=== PATIENT | male | born 1995 | race Caucasian/White ===

== ENCOUNTER 2017-10-30 15:12 | Emergency (ER) | payer BC ==
[2017-10-30 18:07] VITALS: BP 118/67
[2017-10-30] MEDS ORDERED: Lidocaine 1% MPF* 2 ML VIAL INJ ONE (18:07)
--- NOTE | 2017-10-30 18:07 | UC ---
UC General HPI - HPI Summary HPI Summary: pt c/o pain over tailbone area. thinks a cyst. past week, much more sore. - History of Current Complaint Chief Complaint: Ignacio Stated Complaint: CYST TAILBONE Time Seen by Provider: 10/30/17 18:01 Hx Obtained From: Patient Onset/Duration: Gradual Onset Timing: Constant Pain Intensity: 5 Aggravating: pressure to site Alleviating: nothing Associated Signs & Symptoms: Negative: Abdominal Pain, Fever, Nausea - Allergy/Home Medications Allergies/Adverse Reactions: Allergies Allergy/AdvReac Type Severity Reaction Status Date / Time No Known Allergies Allergy Verified 10/30/17 15:56 PMH/Surg Hx/FS Hx/Imm Hx Previously Healthy: Yes - Surgical History Surgical History: None - Family History Known Family History: Positive: Cardiac Disease - Social History Occupation: Student Lives: Dormitory/Roommates Alcohol Use: Daily Substance Use Type: None Smoking Status (MU): Never Smoked Tobacco Type: Cigars - Immunization History Vaccination Up to Date: Yes Review of Systems Constitutional: Negative Skin: Other - tender area over tailbone Eyes: Negative ENT: Negative Respiratory: Negative Cardiovascular: Negative Gastrointestinal: Negative Genitourinary: Negative Motor: Negative Neurovascular: Negative Musculoskeletal: Negative Neurological: Negative Psychological: Negative Is Patient Immunocompromised?: No All Other Systems Reviewed And Are Negative: Yes Physical Exam Triage Information Reviewed: Yes Appearance: Well-Appearing Vital Signs: Initial Vital Signs Temp 98.6 F 10/30/17 15:51 Pulse 61 10/30/17 15:51 Resp 17 10/30/17 15:51 BP 118/58 10/30/17 15:51 Pulse Ox 100 10/30/17 15:51 Vital Signs Reviewed: Yes Eyes: Positive: Conjunctiva Clear ENT: Positive: Normal ENT inspection Neck: Positive: Supple, Nontender, No Lymphadenopathy Respiratory: Positive: Lungs clear, Normal breath sounds Cardiovascular: Positive: RRR, No Murmur Abdomen Description: Positive: Nontender, No Organomegaly, Soft, Other: - no inguinal adenopathy. Negative: Distended, Guarding Bowel Sounds: Positive: Present Musculoskeletal: Positive: ROM Intact Neurological: Positive: Alert Psychological: Positive: Age Appropriate Behavior Skin Exam: Normal Skin: Positive: rashes - 2cm area of mild erythema, swelling and tenderness in gluteal fold in tailbone area. Course/Dx - Course Course Of Treatment: PROCEDURE: site prep betadine. local with 1ml 1% lidocaine and 30g needle. 18g used to aspirate. no puss/collection thus no I&D. site cleaned with sterile water and covered with sterile piece of gauze. pt tolwerated well. - Differential Dx - Multi-Symptom Provider Diagnoses: Skin ionfection upper gluteal fold. Discharge - Sign-Out/Discharge Documenting (check all that apply): Discharge/Admit/Transfer - Discharge Plan Condition: Stable Disposition: HOME Prescriptions: Amoxicillin/Clavulanate TAB* [Augmentin TAB 875*] 875 mg PO BID #14 tab Patient Education Materials: Pilonidal Cyst (ED) Referrals: Jaspal Hughes MD [Primary Care Provider] - Additional Instructions: FOLLOW UP [facility] THURSDAY(3 DAYS) FOR A RECHECK. RETURN HERE SOONER IF WORSE. - Billing Disposition and Condition Condition: STABLE Disposition: HOME
== END 2017-10-30 18:55 | disposition home or self-care (01) ==
LOC: UCCORT 15:12
DX: L08.9 Local infection of the skin and subcutaneous tissue, unspecified (principal)
CPT/HCPCS: 99202; G0463